=== PATIENT | female | born 1955 | race Caucasian/White ===

== ENCOUNTER 2021-07-18 14:58 | Emergency (ER) | payer OTHER ==
[~2021-07-18 14:58] MED LIST: ADVAIR 250-501 EACH INH; ALDACTONE25 MG PO; ASPIRIN 325MG325 MG PO; BENTYL 20MG TAB20 MG PO; CEFUROXIME250 MG PO; CHLORTHALIDONE25 MG PO; CLARITIN10 MG PO; CLOPIDOGREL75 MG PO; DAILY MULTIPLE1 EAC1 PO; HYDROCODON-ACE1 EAC4 PO; KLOR-CON M2020 MEQ PO; LIPITOR TAB 2020 MG PO; LOPRESSOR 50 MG50 MG PO; MEDROL4 MG PO; MICROZIDE12.5 MG PO; MILK OF MAGNESI30 ML PO; MIRALAX17 GM PO; MYCOSTATIN CREA15 GM TOP; NICOTINE PATCH1 EAC5 TD; OMNICEF 300 MG300 MG PO; PREDNISONE10 MG PO; PREDNISONE20 MG PO; PRINIVIL10 MG PO; PROTONIX40 MG PO; RANEXA500 MG PO; RESTORIL 15 MG15 MG PO; ROBAXIN-750750 MG PO; SINGULAIR10 MG PO; SURFAK 240 MG240 MG PO; TESSALON PERLE100 MG PO; THEO-DUR 300 M300 MG PO; TOPROL XL50 MG PO; TYLENOL 325MG325 MG PO; VITAMIN C500 M1 PO; XOPENEX HFA15 GM INH; XOPENEX0.63 MG/3 INH; ZITHROMAX500 MG PO
[2021-07-18 15:49] LABS: HEMOGLOBIN 13.5 gm/dl (12.3-15.3); RED BLOOD COUNT 4.57 M/UL (4.00-5.10); WHITE BLOOD COUNT 10.7 K/UL (4.5-11.0)
[2021-07-18] MEDS ORDERED: PHENERGAN 25 MG25 M1 PO (19:11)
[2021-07-18] MEDS ORDERED: BENZONATATE100 MG PO (19:11)
[2021-07-18] MEDS ORDERED: RANOLAZINE ER500 MG PO (19:11)
[2021-07-18] MEDS ORDERED: METOPROLOL TART50 MG PO (19:11)
== END 2021-07-18 19:30 | disposition home or self-care (01) ==
LOC: ER1 14:58
PROVIDERS: Family Medicine
DX: J44.9 Chronic obstructive pulmonary disease, unspecified (principal); E66.01 Morbid (severe) obesity due to excess calories; E87.1 Hypo-osmolality and hyponatremia; E87.6 Hypokalemia; E86.0 Dehydration; F17.200 Nicotine dependence, unspecified, uncomplicated; Z20.822 Contact with and (suspected) exposure to COVID-19; R10.13 Epigastric pain; I25.10 Atherosclerotic heart disease of native coronary artery without angina pectoris; R11.2 Nausea with vomiting, unspecified; Z79.82 Long term (current) use of aspirin; Z79.02 Long term (current) use of antithrombotics/antiplatelets; Z99.81 Dependence on supplemental oxygen
CPT/HCPCS: 71045; 80053; 81001; 82550; 82553; 83605; 83690; 83735; 84484; 85025; 93005; 96374; 99284; J2405; J7030; U0002